=== PATIENT | male | born 1960 | race Caucasian/White ===

== ENCOUNTER 2016-08-12 07:45 | Day surgery (SDC) | payer BC, OTHER ==
[~2016-08-12 07:45] MED LIST: CHONDR SU A NA/HYALUR INTRAOC KIT (SURGICARE) ONE; EPINEPHRINE INJ/PF 1 MG/1 ML AMPULE ONE; KETOROLAC TROMETHAMINE 0.45% 4 DROP/0.4 ML DROPERETTE OD PRN; LIDOCAINE 1% INJ-PF (10 MG/ML) 30 ML SDV ONE; TRYPAN BLUE 0.06 % OPH SOLN 0.5 ML DISP.SYRIN ONE
[2016-08-12] MEDS: CYCLOPENTOLATE 0.2%/PHENYLEPHRINE 1% OPH SOLN 2 ML OD PRN ×3 (08:18→08:39)
[2016-08-12] MEDS: BESIFLOXACIN HCL 0.6% OPH SUSP 5 ML BOTTLE OD PRN ×4 (08:18→09:36)
[2016-08-12] MEDS: TROPICAMIDE 1% OPH SOLN 3 ML OD PRN ×3 (08:18→08:39)
[2016-08-12] MEDS: TETRACAINE HCL 0.5% OPH SOLN 2 ML OD PRN ×3 (08:18→09:03)
[2016-08-12] MEDS ORDERED: MIDAZOLAM 2 MG/2 ML INJ ONE (08:42)
--- NOTE | 2016-08-12 19:53 | [facility] OPERATIVE REPORT E ---
[facility] Operative Report NAME: SOPHIE OSORIO AGE: 55Y DATE OF SURGERY: 08/12/2016 ROOM: PREOPERATIVE DIAGNOSIS: CATARACT, RIGHT EYE. POSTOPERATIVE DIAGNOSIS: CATARACT, RIGHT EYE. OPERATION: Cataract extraction with intraocular lens implant of the right eye. SURGEON: LI ROLDAN M.D. ANESTHESIA: Topical. PROCEDURE: After obtaining appropriate consent, the patient's right eye was prepped and draped in sterile fashion as well as the surgeon in a sterile manner and cataract surgery was started. First a paracentesis blade was used to make a small side-port incision. Viscoelastic was used to inflate the anterior chamber. Next a 2.4 mm incision was made with the paracentesis blade. A continuous capsulorrhexis incision was made using a cystotome and Utrata forceps. Following this hydrodissection was carried out to make the lens fully loose and mobile and it was rotated 90 degrees. Following this, a gyxmfi-eyi-yszzfcc technique was used to phacoemulsify the lens with a CDE of 9.55. The remaining cortex was removed with irrigation/aspiration. Provisc was instilled into the capsular bag to inflate the bag. A SN60WF, 21.0 diopter lens was placed. The remaining viscoelastic material was removed with irrigation/aspiration. Following this, a 10-0 nylon suture was used to close the incision and it was found to be watertight. Vigamox was instilled in the eye and a protective shield was placed over the eye. The patient returned to the postoperative recovery in stable condition. DICTATING PHYSICIAN: LI ROLDAN M.D. [id number] PHY#: [id number] ID: [id number] JOB#: [id number] ACCT: [id number] cc:LI ROLDAN M.D. >
--- NOTE | 2016-08-12 19:53 | DISCHARGE SUMMARY E ---
Discharge Summary NAME: SOPHIE OSORIO : 1960 AGE: 55Y ADMITTED: 08/12/2016 DISCHARGED: 08/12/2016 This is a 55-year-old male who underwent cataract extraction of the right eye with insertion of an intraocular lens. DIAGNOSIS: Cataract, right eye. He underwent surgery because he was having glare causing difficulty with night driving. DISCHARGE INSTRUCTIONS: He is to be on a regular diet. No bending at his waist, no heavy lifting. He is to use Besivance, Ilevro, and Durezol at 3:00 p.m. and 8:00 p.m., and sleep with a rigid shield. I will see him for his one day postoperative tomorrow. DICTATING PHYSICIAN: LI ROLDAN M.D. [id number] PHY#: [id number] ID: [id number] JOB#: [id number] ACCT: [id number] cc:LI ROLDAN M.D. >
== END 2016-08-12 10:16 | disposition home or self-care (01) ==
LOC: SC 07:45
PROVIDERS: ATTEND Internal Medicine
PROC: 08RJ3JZ Replacement of Right Lens with Synthetic Substitute, Percutaneous Approach (ICD-10-PCS; principal; 2016-08-12 09:00)
DX: H25.813 Combined forms of age-related cataract, bilateral (principal); I10 Essential (primary) hypertension; Z79.899 Other long term (current) drug therapy
CPT/HCPCS: 66984; V2632; J2250; J3490 ×2; J0171; 142